=== PATIENT | male | born 1965 | race Caucasian/White ===

== ENCOUNTER 2017-09-03 11:40 | Emergency (ER) | payer OTHER ==
[~2017-09-03] VITALS: Ht 182.9 cm; Wt 104.3 kg
[2017-09-03] MEDS ORDERED: BACTRIM DS TAB1 EACH PO (13:21)
[2017-09-03] MEDS ORDERED: NORCO 5-325 TA1 EACH PO (13:21)
[2017-09-03 14:17] VITALS: BP 170/110
== END 2017-09-03 14:18 | disposition home or self-care (01) ==
LOC: M.ERS 11:40
DX: L02.416 Cutaneous abscess of left lower limb (principal); I10 Essential (primary) hypertension